=== PATIENT | female | born 1995 | race Caucasian/White ===

== ENCOUNTER 2016-12-03 05:58 | Inpatient (IN) ==
[2016-12-03] MEDS ORDERED: ONDANSETRON 4 MG/2 ML VIAL IV PRN ×2 (06:17→18:25)
[2016-12-03] MEDS ORDERED: ACETAMINOPHEN 325 MG TABLET PO PRN ×2 (06:17→18:25)
[2016-12-03] MEDS ORDERED: BUTORPHANOL 1 MG/ML VIAL IV PRN (06:17)
[2016-12-03] MEDS: LACTATED RINGERS 1,000 ML IV SCH ×3 (06:30→22:03)
[2016-12-03] MEDS ORDERED: OXYTOCIN/LR 20 UNIT/1,000 ML BAG IV SCH (06:30)
[2016-12-03 06:36] LABS: Basophils % 0.2 % (0.0-0.8); Hematocrit 31.5 VOL% (35.7-47.0); Hemoglobin 10.8 GM/DL (12.0-16.0); Immature Granulocytes % 0.7 %; Immature Granulocytes Absolute 0.06 #; Lymphocytes # 2.1 10*3/uL (1.4-4.0); Lymphocytes % 23.8 % (21.3-54.2); Mean Corpuscular HGB Conc 34.3 GM/DL (32-36); Mean Corpuscular Hemoglobin 29 PG (27-34); Mean Corpuscular Volume 83.8 FL (87-102); Mean Platelet Volume 9.6 FL (9.6-12.0); Monocytes # 0.8 10*3/uL (0.11-0.8); Monocytes % 8.6 % (1.7-12.7); Neutrophils # 5.9 10*3/uL (1.4-7.4); Neutrophils % 66.7 % (38.7-73.9); Platelet Count 222 T/CUMM (130-400); Red Blood Count 3.76 MC/CUMM (3.8-5.5); Red Cell Distribution Width 12.1 % (9.3-17.3); White Blood Count 8.9 T/CUMM (4-12)
[2016-12-03 07:08] LABS: Albumin 2.6 G/DL (3.4-5.0); Bilirubin,Total 0.7 MG/DL (0.2-1.0); Calcium 8.8 MG/DL (8.5-10.1); Osmolality,Calculated 274.5 MOS/KG (273-304); Potassium 3.6 MMOL/L (3.5-5.1); Total Protein 6.5 G/DL (6.4-8.3)
--- NOTE | 2016-12-03 08:47 | History and Physical Update ---
History and Physical Update - History and Physical H&P was reviewed, the patient examined and there: are no changes in the patients condition since last H&P was completed. - Dictation Physical: refer to scanned H&P - Physical Exam Mental Status: alert and oriented Heart: regular rate and rhythm Lung: clear to auscultation Abdomen: within normal limits Vitals: within normal limits History and Physical Changes: at 39+ weeks admitted for induction of labor. No complications. GBS-. Expect .
[2016-12-03] MEDS ORDERED: diphenhydrAMINE 50 MG/1 ML VIAL IV PRN ×2 (08:57)
[2016-12-03] MEDS ORDERED: ePHEDrine 50 MG/ML AMP IV PRN (08:57)
[2016-12-03] MEDS ORDERED: hydrOXYzine HCL 25 MG/1 ML VIAL IM PRN (08:57)
[2016-12-03] MEDS ORDERED: PROMETHAZINE 25 MG/1 ML VIAL IM ONE (08:57)
[2016-12-03] MEDS ORDERED: FAMOTIDINE 20 MG/2 ML VIAL IV ONE (08:57)
[2016-12-03] MEDS ORDERED: ONDANSETRON 4 MG/2 ML VIAL IV ONE (08:57)
[2016-12-03] MEDS ORDERED: CITRIC ACID/SODIUM CITRATE 30 ML UDCUP PO ONE (08:57)
[2016-12-03] MEDS ORDERED: LACTATED RINGERS 1,000 ML IV ONE (08:57)
[2016-12-03 09:08] LABS: INR 0.9; PT Patient Result 9.4 SECS; Partial Thromboplastin Time 27.9 SECS (0-40)
[2016-12-03] MEDS: fentaNYL 2 MCG/ROPIV 0.2% EPID 150 ML EPIDURAL SCH (09:53)
[2016-12-03 12:27] LABS: Apearance,Urine CLEAR (Clear); Bilirubin,Urine Negative (Negative); Blood, Urine Negative (Negative); Glucose,Urine (UA) Negative (Negative); Ketones,Urine Negative (Negative); Nitrite,Urine Negative (Negative); Protein,Urine Negative; RBC,Urine <1 /HPF (0-4); Squamous Epithelial Cell,Urine Occasional /HPF (0-10); Urine Color Straw (Yellow); Urine Specific Gravity 1.005 (1.001-1.035); Urine Urobilinogen < 2.0 EU/DL (0.2-1.0); WBC,Urine 1 /HPF (0-6)
[2016-12-03] MEDS ORDERED: LIDOCAINE 1% 50 ML VIAL ONE (17:45)
[2016-12-03] MEDS ORDERED: CARBOPROST TROMETHAMINE 250 MCG/ML AMP IM ONE (17:45)
[2016-12-03] MEDS ORDERED: miSOPROStol 200 MCG TABLET ONE (17:45)
[2016-12-03] MEDS ORDERED: MEASLES/MUMPS/RUBELLA VACCINE 0.5 ML VIAL SUBCUT ONE (18:25)
[2016-12-03] MEDS ORDERED: HYDROCORTISONE 2.5% RECTAL CREAM 30 GM TUBE TOP PRN (18:25)
[2016-12-03] MEDS ORDERED: BENZOCAINE 20%/MENTHOL 0.5% SPRAY 56 GM CAN TOP PRN (18:25)
[2016-12-03] MEDS ORDERED: OXYTOCIN/LR 20 UNIT/1,000 ML BAG IV ONE (18:25)
[2016-12-03] MEDS ORDERED: oxyCODONE/ACETAMINOPHEN 5-325 MG TABLET PO PRN (18:25)
[2016-12-03] MEDS ORDERED: BISACODYL 10 MG SUPP RECTAL PRN (18:25)
[2016-12-03] MEDS ORDERED: RHO(D) IMMUNE GLOBULIN 300 MCG SYRINGE IM ONE (18:25)
[2016-12-03] MEDS ORDERED: LANOLIN 50% CREAM 0.3 OZ TUBE TOP PRN (18:25)
[2016-12-03] MEDS ORDERED: DIPH/TET/ACEL PERT BOOSTER VACCINE 0.5 ML VIAL IM ONE (18:25)
[2016-12-03] MEDS ORDERED: WITCH HAZEL PADS 100/JAR TOP PRN (18:25)
--- NOTE | 2016-12-03 18:34 | Operative Note ---
Date of procedure: 12/03/16 Pre-op diagnosis: 39 + weeks for induction Post-op diagnosis: same Procedure: Delivery note. Patient progressed to complete and pushing with labor epidural and Pitocin augmentation and delivered a viable male over intact perineum right medial labial laceration. Nuchal cord was reduced and baby was delivered without complication. Baby was bulb suctioned on the perineum and then placed on mother's belly. Cord was doubly clamped and cut. Cord blood was collected and then placenta was delivered intact. Right medial labial laceration was repaired with interrupted stitches of 3-0 chromic with good approximation and hemostasis. Fundus is firm. Estimated blood loss 300 mL. Complications none. Patient is stable and the baby is stable. Anesthesia: epidural Surgeon / Physician: Cher King Estimated blood loss: other (300cc) Specimens: other (cord blood to lab; placenta to path) Condition: stable Disposition: no change Results - Labs CBC & BMP: 12/03/16 06:30 12/03/16 06:30 Discharge Plan - Discharge Medications No Action No122/Iron/Folic Acid [ Multi Tablet] 1 each PO DAILY MDD one tab - Follow Up or Referral - Forms/Instructions
[2016-12-03] MEDS: IBUPROFEN 800 MG TABLET PO PRN (20:22)
[2016-12-03] MEDS: DOCUSATE SODIUM 100 MG CAPSULE PO SCH (21:30)
[2016-12-04] MEDS: LACTATED RINGERS 1,000 ML IV SCH (01:13)
[2016-12-04] MEDS: fentaNYL 2 MCG/ROPIV 0.2% EPID 150 ML EPIDURAL SCH (01:15)
[2016-12-04 06:11] LABS: Basophils % 0.2 % (0.0-0.8); Hematocrit 22.9 VOL% (35.7-47.0); Immature Granulocytes % 0.6 %; Immature Granulocytes Absolute 0.07 #; Lymphocytes # 2.5 10*3/uL (1.4-4.0); Lymphocytes % 20.8 % (21.3-54.2); Mean Corpuscular HGB Conc 34.5 GM/DL (32-36); Mean Corpuscular Hemoglobin 29 PG (27-34); Mean Corpuscular Volume 84.2 FL (87-102); Mean Platelet Volume 9.5 FL (9.6-12.0); Monocytes # 1.1 10*3/uL (0.11-0.8); Monocytes % 9.2 % (1.7-12.7); Neutrophils # 8.4 10*3/uL (1.4-7.4); Neutrophils % 69.2 % (38.7-73.9); Red Cell Distribution Width 12.3 % (9.3-17.3)
[2016-12-04 06:32] LABS: White Blood Count 12.2 T/CUMM (4-12)
[2016-12-04 06:33] LABS: Hemoglobin 7.9 GM/DL (12.0-16.0); Platelet Count 168 T/CUMM (130-400); Red Blood Count 2.72 MC/CUMM (3.8-5.5)
--- NOTE | 2016-12-04 08:36 | Anesthesia Post-Op ---
Anesthesia Post OP - Post Ansesthetic Evaluation Patient seen in post op: Yes Resp: within normal limits CV: within normal limits Mental: within normal limits Temp: within normal limits [id number]-Ai-Ficptqodu: within normal limits Nausea and Vomiting: within normal limits Pain: within normal limits
[2016-12-04] MEDS: DOCUSATE SODIUM 100 MG CAPSULE PO SCH ×2 (08:50→20:30)
[2016-12-04] MEDS: FERROUS SULFATE 325 MG TABLET PO SCH ×2 (08:50→20:30)
[2016-12-04] MEDS: oxyCODONE/ACETAMINOPHEN 5-325 MG TABLET PO PRN ×3 (15:22→23:33)
[2016-12-04] MEDS: IBUPROFEN 800 MG TABLET PO PRN ×2 (15:22→20:31)
[2016-12-04] MEDS: hydroCHLOROthiazide 25 MG TABLET PO SCH (22:09)
[2016-12-05 08:53] VITALS: BP 143/86
[2016-12-05] MEDS: DOCUSATE SODIUM 100 MG CAPSULE PO SCH (10:18)
[2016-12-05] MEDS: hydroCHLOROthiazide 25 MG TABLET PO SCH (10:18)
[2016-12-05] MEDS: FERROUS SULFATE 325 MG TABLET PO SCH (10:19)
[2016-12-05] MEDS: oxyCODONE/ACETAMINOPHEN 5-325 MG TABLET PO PRN (10:22)
[2016-12-05] MEDS: IBUPROFEN 800 MG TABLET PO PRN (10:22)
--- NOTE | 2016-12-05 11:18 | Pathology Report from [facility] ---
[facility] ACCESSION # : [id number] PATIENT NAME : Felipa Najera ORDERING DR : KORI GARCIA, CLINICAL HX: IUIP @ 39.2 wks gestation, labor, maternal temp POST-OP DX: Same SPECIMEN INFO: Placenta GROSS DESCRIPTION: Received fresh labeled with the patients name and consists of a 353 gram placenta measuring 17.0 x 13.0 x 2.5 cm. membranes are pink -plunkett and translucent with attached fragments of clotted blood noted. The umbilical cord measures 35.0 cm, contains three vessels and is pericentrally inserted. The maternal surface is hemorrhagic and intact with no abnormalities appreciated upon sectioning. Sections submitted: A membranes and cord, B and maternal surfaces. DIAGNOSIS FOR FELIPA NAJERA: PLACENTA, 39.2 WEEKS GESTATIONAL AGE, VAGINAL DELIVERY: Mature placenta, 353 gms trimmed weight. Unremarkable membranes. Trivascular umbilical cord, 35 cm in length. COLLECTED DATE: 12/04/2016 [facility] REPORT DATE: 12/05/2016 ELECTRONICALLY SIGNED BY: Jessica Rendon M.D. 12/05/2016 - 10:41:08 JAMES
== END 2016-12-05 12:00 | disposition home or self-care (01) | DRG 775 ==
LOC: N.LDOUT 05:58 → N.LD 05:59 → N.OB 20:30
PROVIDERS: ADMIT Obstetrics & Gynecology; ATTEND Obstetrics & Gynecology

== ENCOUNTER 2019-01-25 06:00 | Inpatient (IN) ==
[2019-01-25] MEDS ORDERED: ONDANSETRON 4 MG/2 ML VIAL IV PRN ×2 (06:12→21:13)
[2019-01-25] MEDS ORDERED: LACTATED RINGERS 500 ML IV PRN (06:12)
[2019-01-25] MEDS ORDERED: BUTORPHANOL 2 MG/ML VIAL IV PRN (06:12)
[2019-01-25] MEDS ORDERED: OXYTOCIN/LR 20 UNIT/1,000 ML BAG IV SCH (06:30)
[2019-01-25] MEDS: LACTATED RINGERS 1,000 ML IV SCH ×2 (06:30→20:23)
[2019-01-25] MEDS ORDERED: AMPICILLIN INJ 2,000 MG in SODIUM CHLORIDE 0.9% 100 ML IV ONE (06:39)
[2019-01-25 06:40] LABS: Basophils % 0.2 % (0.0-0.8); Hematocrit 31.1 VOL% (35.7-47.0); Hemoglobin 10.8 GM/DL (12.0-16.0); Immature Granulocytes % 0.8 %; Immature Granulocytes Absolute 0.07 #; Lymphocytes # 2.3 10*3/uL (1.4-4.0); Lymphocytes % 25.7 % (21.3-54.2); Mean Corpuscular HGB Conc 34.7 GM/DL (32-36); Mean Corpuscular Volume 87.9 FL (87-102); Neutrophils % 65.3 % (38.7-73.9); Platelet Count 190 T/CUMM (130-400); Red Blood Count 3.54 MC/CUMM (3.8-5.5); Red Cell Distribution Width 13.4 % (9.3-17.3); White Blood Count 8.9 T/CUMM (4-12)
[2019-01-25 07:08] LABS: Albumin 2.9 G/DL (3.4-5.0); Bilirubin,Total 0.8 MG/DL (0.2-1.0); Calcium 8.7 MG/DL (8.5-10.1); Osmolality,Calculated 269.8 MOS/KG (273-304); Total Protein 6.7 G/DL (6.4-8.3)
[2019-01-25] MEDS ORDERED: ONDANSETRON 4 MG/2 ML VIAL IV ONE (07:29)
[2019-01-25] MEDS ORDERED: ePHEDrine 50 MG/ML AMP IV PRN (07:29)
[2019-01-25] MEDS ORDERED: CITRIC ACID/SODIUM CITRATE 30 ML UDCUP PO ONE (07:29)
[2019-01-25] MEDS ORDERED: diphenhydrAMINE 50 MG/1 ML VIAL IV PRN ×2 (07:29)
[2019-01-25] MEDS ORDERED: NALOXONE 0.4 MG/ML VIAL IV PRN (07:29)
[2019-01-25] MEDS ORDERED: FAMOTIDINE 20 MG/2 ML VIAL IV ONE (07:29)
[2019-01-25] MEDS ORDERED: LACTATED RINGERS 1,000 ML IV ONE (07:29)
[2019-01-25] MEDS ORDERED: hydrOXYzine HCL 25 MG/1 ML VIAL IM PRN (07:29)
[2019-01-25] MEDS ORDERED: PROMETHAZINE 25 MG/1 ML VIAL IM ONE (07:29)
[2019-01-25] MEDS: fentaNYL 2 MCG/ROPIV 0.2% EPID 100 ML EPIDURAL SCH ×2 (08:57→17:21)
[2019-01-25] MEDS: AMPICILLIN INJ 1,000 MG in SODIUM CHLORIDE 0.9% 100 ML IV SCH ×3 (11:53→20:22)
[2019-01-25 12:06] LABS: Apearance,Urine Clear (Clear); Bilirubin,Urine Negative (Negative); Blood, Urine NEGATIVE (Negative); Glucose,Urine (UA) Negative (Negative); Ketones,Urine Negative (Negative); Mucus,Urine Occasional /LPF (Occasional); Nitrite,Urine Negative (Negative); Protein,Urine Negative; RBC,Urine <1 /HPF (0-4); Squamous Epithelial Cell,Urine Occasional /HPF (0-10); Urine Color Yellow (Yellow); WBC,Urine <1 /HPF (0-6)
[2019-01-25 12:07] LABS: Urine Urobilinogen 0.2 EU/DL (0.2-1.0)
[2019-01-25] MEDS ORDERED: miSOPROStol 200 MCG TABLET ONE (20:46)
[2019-01-25] MEDS ORDERED: TRANEXAMIC ACID 1,000 MG/10 ML VIAL ONE (20:46)
[2019-01-25] MEDS ORDERED: OXYTOCIN/LR 20 UNIT/1,000 ML BAG IV ONE ×2 (20:46→21:13)
[2019-01-25] MEDS ORDERED: CARBOPROST TROMETHAMINE 250 MCG/ML AMP IM ONE (20:47)
[2019-01-25] MEDS ORDERED: SODIUM CHLORIDE 0.9% 0 ML IV ONE (20:47)
[2019-01-25] MEDS ORDERED: METHYLERGONOVINE 0.2 MG/1 ML AMP ONE (20:47)
[2019-01-25] MEDS ORDERED: BISACODYL 10 MG SUPP RECTAL PRN (21:13)
[2019-01-25] MEDS ORDERED: DIPH/TET/ACEL PERT BOOSTER VACCINE 0.5 ML VIAL IM ONE (21:13)
[2019-01-25] MEDS ORDERED: ACETAMINOPHEN 325 MG TABLET PO PRN (21:13)
[2019-01-25] MEDS ORDERED: oxyCODONE/ACETAMINOPHEN 5-325 MG TABLET PO PRN (21:13)
[2019-01-25] MEDS ORDERED: WITCH HAZEL PADS 100/JAR TOP PRN (21:13)
[2019-01-25] MEDS ORDERED: LANOLIN 50% CREAM 0.3 OZ TUBE TOP PRN (21:13)
[2019-01-25] MEDS ORDERED: HYDROCORTISONE 2.5% RECTAL CREAM 30 GM TUBE TOP PRN (21:13)
[2019-01-25] MEDS ORDERED: MEASLES/MUMPS/RUBELLA VACCINE 0.5 ML VIAL SUBCUT ONE (21:13)
[2019-01-25] MEDS ORDERED: BENZOCAINE 20%/MENTHOL 0.5% SPRAY 56 GM CAN TOP PRN (21:13)
[2019-01-25] MEDS ORDERED: RHO(D) IMMUNE GLOBULIN 300 MCG SYRINGE IM ONE (21:13)
[2019-01-25] MEDS: IBUPROFEN 800 MG TABLET PO PRN (22:49)
[2019-01-25] MEDS ORDERED: miSOPROStol 200 MCG TABLET PO ONE (22:49)
[2019-01-26] MEDS: oxyCODONE/ACETAMINOPHEN 5-325 MG TABLET PO PRN ×3 (00:16→12:05)
[2019-01-26] MEDS ORDERED: ALUMINUM/MAGNES/SIMETH MAX STR 30 ML UDCUP PO PRN (04:25)
[2019-01-26 05:42] LABS: Basophils % 0.1 % (0.0-0.8); Hemoglobin 10.4 GM/DL (12.0-16.0); Immature Granulocytes % 0.6 %; Immature Granulocytes Absolute 0.08 #; Lymphocytes # 2.2 10*3/uL (1.4-4.0); Lymphocytes % 15.5 % (21.3-54.2); Mean Corpuscular HGB Conc 34.7 GM/DL (32-36); Mean Corpuscular Volume 87.7 FL (87-102); Mean Platelet Volume 9.1 FL (9.6-12.0); Monocytes % 7.8 % (1.7-12.7); Platelet Count 191 T/CUMM (130-400); Red Blood Count 3.42 MC/CUMM (3.8-5.5); Red Cell Distribution Width 13.3 % (9.3-17.3); White Blood Count 14.4 T/CUMM (4-12)
[2019-01-26] MEDS: IBUPROFEN 800 MG TABLET PO PRN ×3 (06:09→18:49)
[2019-01-26] MEDS ORDERED: PANTOPRAZOLE 40 MG TABLET PO SCH (09:00)
[2019-01-26] MEDS: DOCUSATE SODIUM 100 MG CAPSULE PO SCH ×2 (09:30→21:49)
[2019-01-27] MEDS: IBUPROFEN 800 MG TABLET PO PRN (02:50)
[2019-01-27] MEDS: oxyCODONE/ACETAMINOPHEN 5-325 MG TABLET PO PRN (03:45)
[2019-01-27 07:09] VITALS: BP 112/68
[2019-01-27] MEDS: DOCUSATE SODIUM 100 MG CAPSULE PO SCH ×2 (08:42→08:44)
[2019-01-27] MEDS ORDERED: SERTRALINE 50 MG TABLET PO SCH (09:30)
== END 2019-01-27 13:30 | disposition home or self-care (01) | DRG 560 ==
LOC: N.LDOUT 06:00 → N.LD 06:04 → N.OB 01-26
PROVIDERS: ADMIT Obstetrics & Gynecology; ATTEND Obstetrics & Gynecology